=== PATIENT | male | born 1940 | race Caucasian/White ===

== ENCOUNTER → 2018-06-08 | Outpatient (CLI) | payer MEDICARE, OTHER ==
[~2018-06-08] MED LIST: REGADENOSON 0.4 MG/5 ML DISP.SYRIN. IV ONE
--- NOTE | 2018-06-08 10:00 | PCVCIMAG ---
APPROVED REPORT Study performed: 06/08/2018 07:46:05 EXAM: Comprehensive 2D, Doppler, and color-flow Echocardiogram Patient Location: Echo lab Status: routine BSA: 2.18 HR: 56 bpmBP: 170/90 mmHg Rhythm: Bradycardia Other Information Study Quality: Adequate Risk Factors: Cardiac Risk Factors: HTN Indications Congestive Heart Failure Dyspnea CAD 2D Dimensions IVSd: 14.80 (7-11mm)LVOT Diam: 21.73 (18-24mm) LVDd: 49.04 mm PWd: 14.33 (7-11mm)Ascending Ao: 43.40 (22-36mm) LVDs: 44.37 (25-40mm) Left Atrium: 44.25 (27-40mm) Aortic Root: 40.75 mm LV Single Plane 4CH: 39.77 % LV Single Plane 2CH: 38.99 % Biplane EF: 39.7 % Volumes Left Atrial Volume (Systole) Single Plane 4CH: 122.10 mLSingle Plane 2CH: 157.79 mL LA ESV Index: 65.00 mL/m2 Aortic Valve AoV Peak Dmitry.: 2.25 m/s AO Peak Gr.: 20.16 mmHgLVOT Max P.22 mmHg AO Mean Gr.: 10.16 mmHgLVOT Mean P.55 mmHg AO V2 Mean: 1.48 m/sLVOT Max V: 0.94 m/s AO V2 VTI: 48.01 cmLVOT Mean V: 0.58 m/s AMADOR (VTI): 1.63 [id number] V1 VTI: 21.06 cm AMADOR Vmax: 1.56 cm2 AI Vmax: 4.72 m/sSV (LVOT): 78.08 mL AI [place]: 2.78 m/s2 AI PHT: 492.07 ms Mitral Valve E/A Ratio: 0.6 MV Decel. Time: 285.50 ms MV E Max Dmitry.: 0.54 m/s MV A Dmitry.: 0.95 m/s IVRT: 148.79 ms Pulmonary Valve PV Peak Dmitry.: 1.01 m/sPV Peak Gr.: 4.12 mmHg Pulmonary Vein P Vein S: 0.33 m/sP Vein A: 0.50 m/s P Vein D: 0.45 m/sP Vein A Dur.: 176.5 msec P Vein S/D Ratio: 0.73 Tricuspid Valve TR Peak Dmitry.: 2.83 m/s TR Peak Gr.: 32.14 mmHg TV Vmax: 0.44 m/s Left Ventricle The left ventricle is normal size. Moderate concentric left ventricular hypertrophy. Left ventricular systolic function is moderately decreased. LVEF is 40%. Grade I - abnormal relaxation pattern. Right Ventricle The right ventricle is normal size. The right ventricular systolic function is normal. Atria Left atrium is severely dilated. The right atrium size is normal. Aortic Valve Moderate aortic valve sclerosis. Moderate aortic regurgitation. There is mild valvular aortic stenosis. Calculated aortic valve area is 1.6 cm2 with maximum pressure gradient of 20 mmHg and mean pressure gradient of 10 mmHg. Mitral Valve The mitral valve is normal in structure. Mild to moderate mitral regurgitation. No evidence of mitral valve stenosis. Tricuspid Valve The tricuspid valve is normal in structure. Mild tricuspid regurgitation with PAP of 40 mmHg. Pulmonic Valve The pulmonary valve is normal in structure. Mild pulmonic regurgitation. Great Vessels The aortic root is dilated to 4.1 cm. 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 IVC is normal in size and collapses >50% with inspiration. Pericardium There is no pericardial effusion. There is no pleural effusion. <Conclusion> The left ventricle is normal size. Moderate concentric left ventricular hypertrophy. Left ventricular systolic function is moderately decreased. LVEF is 40%. Grade I - abnormal relaxation pattern. The right ventricle is normal size. The right ventricular systolic function is normal. Left atrium is severely dilated. Moderate aortic regurgitation. There is mild valvular aortic stenosis. Mild to moderate mitral regurgitation. Mild tricuspid regurgitation with PAP of 40 mmHg. 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
--- NOTE | 2018-06-08 11:52 | PCVCIMAG ---
APPROVED REPORT Imaging Protocol: Rest Tc-99m/Stress Tc-99m 1 day Study performed: 06/08/2018 09:20:33 Indication: Chest pain, Dyspnea, CAD, ICM Patient Location: Out-Patient Stress Nurse: Barbara Perales RN, Angela Arana RN [place] Tech:Clara JYOTI RuizMT Ht: 6 ft 2 in Wt: 190 lbs BSA: 2.13 m2 HR: 52 bpm BP: 200/80 mmHg BMI: 24.39 Rhythm: Sinus Bradycardia, Sinus Rhythm, LVH, T Wave Abn Medical History Medical History: HTN, Hyperlipidemia, CAD, Former Smoker, Diabetic Insulin, MA, CHF Medications: ASA, Atorvastatin, Lasix, Insulin, Omeprazole, Carvedilol, Lisinopril Allergies: No known drug allergies Cardiac Risk Factors: Age Previous Cardiac Procedures: CABG Pretest Chest Pain Characteristics: No chest pain Exercise History: Sedentary Meds Held (24 hrs): Carvedilol Resting Data Rest SPECT myocardial perfusion imaging was performed in supine position 45 minutes following the intravenous injection of 10.9 mCi of Tc-99m Sestamibi. Time of rest injection: 0845 Date: 06/08/2018 Administration Route: IV Administration Site: Right Arm Pharmacologic Stress Pharmacologic stress test was performed by injecting Regadenoson 0.4 mg IV push over 10-15 seconds immediately followed by the intravenous injection of 33.8 mCi of Tc-99m Sestamibi. Time of stress injection: 1000 Date: 06/08/2018 Administration Route: IV Administration Site: Right Arm Gated Stress SPECT was performed 45 minutes after stress injection. The images were gated to evaluate regional wall motion and calculate left ventricular ejection fraction. Stress Test Details Stress Test: Pharmacologic stress testing performed using 0.4 mg of regadenoson per 5 mL given IV over 10 seconds. Reason for pharmacologic stress test: physical limitation. HRMax Heart Rate (APMHR): 142 bpm Resting HR: 52 bpmTarget HR (85% APMHR): 120 bpm Max HR Achieved: 80 bpm % of APMHR: 56 Recovery HR: 56 bpm BP Resting BP: 200/80 mmHg Max BP: 209/95 mmHg Recovery BP: 198/80 mmHg ECG Resting ECG: Sinus Rhythm, nonspecific ST-T abnormalities Stress ECG: Sinus Rhythm, nonspecific ST-T abnormalities ST Change: Non-ischemic Recovery ECG: Sinus Bradycardia, PVC's Clinical Reason for Termination: Completed protocol Stress Symptoms: Dyspnea Exercise duration: 0 min 55 sec Symptoms resolved with caffeine. Study Quality Study: Good Artifact: Mild Diaphragmatic artifact Study Data Post stress, the left ventricular ejection was 36%.. SSS: 1 SRS: 4 SDS: 0 Perfusion There is a small area of mildly reduced uptake in the basal segment of the inferior wall which is seen on the stress images as well as the resting images. This area thickens and moves normally and is most consistent with attenuation artifact. Wall Motion Moderately decreased left ventricular systolic function. Nuclear Conclusion ECG Findings: non-ischemic Clinical Findings: non-diagnostic Nuclear Findings: negative for ischemia Exercise Capacity: not assessed Left Ventricular Function: abnormal This study is of low probability for inducible ischemia. Artifact: Mild Diaphragmatic artifact. Moderate LV dysfunction.
== END | disposition home or self-care (01) ==
LOC: PCVCIMAG 08:09
PROVIDERS: ATTEND Internal Medicine Cardiovascular Disease
DX: I08.3 Combined rheumatic disorders of mitral, aortic and tricuspid valves (principal); I25.10 Atherosclerotic heart disease of native coronary artery without angina pectoris; I11.0 Hypertensive heart disease with heart failure; I50.9 Heart failure, unspecified; E78.2 Mixed hyperlipidemia; R60.9 Edema, unspecified; R06.09 Other forms of dyspnea; J44.9 Chronic obstructive pulmonary disease, unspecified; K21.9 Gastro-esophageal reflux disease without esophagitis; G47.33 Obstructive sleep apnea (adult) (pediatric); E11.9 Type 2 diabetes mellitus without complications; Z79.82 Long term (current) use of aspirin; Z79.4 Long term (current) use of insulin; Z87.891 Personal history of nicotine dependence
CPT/HCPCS: 36415; 78452; 80061; 93017; 93306; A9500; G0463; J2785

== ENCOUNTER → 2018-09-05 | Outpatient (CLI) | payer MEDICARE, OTHER | END | disposition home or self-care (01) | LOC: PCVCCLINIC 11:00 | PROVIDERS: ATTEND Internal Medicine Cardiovascular Disease | DX: I25.10 Atherosclerotic heart disease of native coronary artery without angina pectoris (principal); I11.0 Hypertensive heart disease with heart failure; I50.9 Heart failure, unspecified; E78.00 Pure hypercholesterolemia, unspecified; R60.9 Edema, unspecified; Z79.4 Long term (current) use of insulin; Z87.891 Personal history of nicotine dependence | CPT/HCPCS: 93005; G0463 ==

== ENCOUNTER → 2018-10-02 | Outpatient (CLI) | payer MEDICARE, OTHER | END | disposition home or self-care (01) | LOC: PCVCCLINIC 09:50 | PROVIDERS: ATTEND Internal Medicine Cardiovascular Disease | DX: I25.10 Atherosclerotic heart disease of native coronary artery without angina pectoris (principal); E78.5 Hyperlipidemia, unspecified; K21.9 Gastro-esophageal reflux disease without esophagitis; J44.9 Chronic obstructive pulmonary disease, unspecified; I11.0 Hypertensive heart disease with heart failure; I50.9 Heart failure, unspecified | CPT/HCPCS: 93005; G0463 ==

== ENCOUNTER → 2019-01-25 | Outpatient (CLI) | payer MEDICARE, OTHER | END | disposition home or self-care (01) | LOC: PCVCCLINIC 13:00 | PROVIDERS: ATTEND Internal Medicine Cardiovascular Disease | DX: I25.10 Atherosclerotic heart disease of native coronary artery without angina pectoris (principal); E78.00 Pure hypercholesterolemia, unspecified; I11.0 Hypertensive heart disease with heart failure; I50.9 Heart failure, unspecified; J44.9 Chronic obstructive pulmonary disease, unspecified; K21.9 Gastro-esophageal reflux disease without esophagitis; R60.9 Edema, unspecified; Z79.82 Long term (current) use of aspirin; Z79.4 Long term (current) use of insulin; Z79.899 Other long term (current) drug therapy; Z87.891 Personal history of nicotine dependence; Z72.89 Other problems related to lifestyle | CPT/HCPCS: 93005; G0463 ==